=== PATIENT | male | born 1960 | race Caucasian/White ===

== ENCOUNTER → 2019-10-16 08:51 | Outpatient (BNVA) | payer BC, SELFPAY | PROVIDERS: Family Provider Family Medicine; PCP Family Medicine; Visit Provider Podiatrist Foot & Ankle Surgery | DX: M79.671 Pain in right foot (principal) | CPT/HCPCS: 73650 ==

== ENCOUNTER 2019-10-27 04:08 | Emergency (ER) | payer BC, SELFPAY ==
[2019-10-27] VITALS (28 sets, daily range): BP systolic 114–157; BP diastolic 80–92; PULSE 58–60; RESP 17–20; TEMP 526.1–978.9; O2SAT 96–100; BMI 29.5
--- NOTE | 2019-10-27 04:31 | CTR_ITS ---
PROCEDURE INFORMATION: Exam: CT Abdomen And Pelvis Without Contrast Exam date and time: 10/27/2019 4:36 AM Age: 59 years old Clinical indication: Abdominal pain; Flank; Right; Prior surgery; Surgery date: 6+ months; Surgery type: Prostatectomy; Additional info: Flank/abdominal pain TECHNIQUE: Imaging protocol: Computed tomography of the abdomen and pelvis without contrast. Total DLP: 1396.06 mGy-cm Radiation optimization: All CT scans at this facility use at least one of these dose optimization techniques: automated exposure control; mA and/or kV adjustment per patient size (includes targeted exams where dose is matched to clinical indication); or iterative reconstruction. COMPARISON: No relevant prior studies available. FINDINGS: Liver: Normal. No mass. Gallbladder and bile ducts: Normal. No calcified stones. No ductal dilation. Pancreas: Normal. No ductal dilation. Spleen: Normal. No splenomegaly. Adrenals: Normal. No mass. Kidneys and ureters: There is moderate hydronephrosis and hydroureter seen on the right. There is a partially obstructing 3.8 x 6.1 mm distal right ureteral calculus seen at the ureterovesical junction. Stomach and bowel: There are loops of distal small bowel containing desiccated bowel contents suggesting small bowel stasis and enteritis. Appendix: The appendix is visualized and is normal in configuration. Intraperitoneal space: Unremarkable. No free air. No significant fluid collection. Vasculature: Unremarkable. No abdominal aortic aneurysm. Lymph nodes: Unremarkable. No enlarged lymph nodes. Bladder: Unremarkable as visualized. Reproductive: Status post prostatectomy. Bones/joints: Unremarkable. No acute fracture. Soft tissues: There are small bilateral inguinal hernias present containing fat. CT/CT kidney stone 75819 IMPRESSION: 1. Partially obstructing 3.8 x 6.1 mm distal right ureteral calculus at the level of the ureterovesical junction. 2. There are nondilated loops of distal small bowel seen containing particulate bowel contents suggesting small bowel stasis and enteritis. Radiation Dose CTDIVOL = (mGy): DLP = 1396.06 (mGy-cm)
--- NOTE | 2019-10-27 04:31 | ED_ITS ---
Documented by User: Sandra Cameron 10/27/19 04:40 HPI - Abdominal Pain General: Chief Complaint: Abdominal Pain Stated Complaint: ABD PAIN Time Seen by Provider: 10/27/19 04:18 History of Present Illness: HPI narrative: Leonardo is a 59-year-old male comes in complaining of intermittent right flank pain for the past 3 days. He states this pain feels similar to when he has had kidney stones in the past. Patient does not believe he has had any hematuria and denies any dysuria. He has had nausea but no vomiting. He denies any exacerbating or alleviating factors. Associated Symptoms: Reports nausea; Denies chills, coffee ground emesis, constipation, GI cramping, diarrhea, dysuria, fever(s), hematochezia, hematuria, hematemesis, melena, syncope and vomiting Review of Systems General: Reports: other (negative unless marked) Const: Denies: fever, chills, body aches, fatigue, malaise or diaphoresis Eyes: Denies: change in vision or blurry vision ENMT: Denies: throat pain, painful swallowing, hoarseness, ear pain, ear discharge, Change in hearing or nasal discharge Card: Denies: chest pain, palpitations, irregular heart rhythm, syncope, pre- syncope, shortness of breath on exertion or shortness of breath when lying down Resp: Denies: shortness of breath, productive cough, non-productive cough, wheezing, coughing up blood or chest congestion GI: Reports: abdominal pain and nausea; Denies: vomiting, vomiting blood, coffee grounds in vomit, diarrhea, constipation, cramping, blood in stool or black tarry stool : Reports: flank pain; Denies: difficulty urinating, painful urination, urinary frequency, urinary urgency, decreased urine ouput, urinary incontinence or blood in urine Musc: Denies: neck pain, back pain, extremity pain, extremity swelling, joint pain, joint swelling, joint warmth or joint stiffness Skin/Breast: Denies: rash, skin tenderness or yellow skin Neuro: Denies: headache, numbness in extremities, weakness in extremities, changes in sensation, lack of coordination, difficulty walking, dizziness, vertigo or confusion Endo: Denies: excessive thirst, tired all the time, cold intolerance, excessive sweating, flushing or hot flashes Raheem/Lymph: Denies: easy bruising, easy bleeding, petechiae or enlarged lymph nodes All/Imm: Denies: hives, throat swelling, tongue swelling, facial swelling or acute wheezing PFSH ED PFSH: Medical History High cholesterol Surgical History History of ankle surgery History of foot surgery History of knee surgery History of shoulder surgery Family History Other Cancer Diabetes Social History Smoking and tobacco status: never smoked Alcohol intake: current Alcohol intake frequency: 0-2 Drinks per Day Household members: spouse Marital status: Current occupational status: employed Current occupation: Semi retired, [employer] Physical Exam Const: COMMON NORMALS: no apparent distress, oriented x3, no limitations, healthy appearing and well nourished EXAM LIMITATIONS: no altered mental status GENERAL APPEARANCE: cooperative, well kempt and well developed ORIENTATION/CONSCIOUSNESS: Yes awake HENMT: COMMON NORMALS: normocephalic, head/scalp atraumatic, hearing grossly normal bilaterally, external ears normal, EAC's normal, external nose normal and moist oral mucous membranes HEAD & SCALP: normal to inspection, normocephalic and atraumatic FACE & SINUS: normal facial exam and face symmetric NOSE: external nose normal and nares normal EXTERNAL EAR: Yes external ears normal EXTERNAL AUDITORY CANAL: EAC's normal MOUTH: oral and palatal mucosa normal and tongue normal Eye: COMMON NORMALS: PERRL, EOMs intact bilaterally, conjunctivae normal and no scleral icterus GENERAL EYE: normal appearance of both eyes and normal light reflex CONJUNCTIVA: Yes conjunctivae normal SCLERA: sclerae normal CORNEA: Yes corneas normal PUPIL: Yes PERRL DIRECT OPHTHALMOSCOPY: Yes normal light reflex Neck/C-Spine: COMMON NORMALS: full ROM, no lymphadenopathy, supple, no meningeal signs and no JVD GENERAL: Yes normal visual inspection and Yes trachea midline CERVICAL SPINE: Yes cervical ROM normal Chest: COMMONS NORMALS: inspection of chest normal and palpation of chest normal Resp: COMMON NORMALS: normal respiratory effort, no retractions, no use of accessory muscles and clear to auscultation bilaterally EFFORT & INSPECTION: Yes able to speak in complete sentences AUSCULTATION: clear to auscultation bilaterally Cardio: COMMON NORMALS: no JVD, regular rate, regular rhythm, S1 normal heart sound, S2 normal heart sound, no gallops, no clicks, no murmurs and no rub JUGULAR VENOUS DISTENTION: no JVD RATE: regular rate RHYTHM: regular rhythm HEART SOUNDS: S1 normal and S2 normal GI: COMMON NORMALS: soft to palpation, non-tender, no hepatosplenomegaly and no masses INSPECTION: Yes normal to inspection PALPATION: Yes soft and Yes no hepatosplenomegaly : BLADDER/KIDNEY EXAM: Yes CVA tenderness on the right Back/Pelvis: COMMON NORMALS: thoracic and lumbar spine normal to inspection, no thoracic nor lumbar tenderness and thoraco-lumbar ROM normal GENERAL BACK: Yes CVA tenderness Extremity: COMMON NORMALS: normal to inspection, full ROM, normal capillary refill, no joint enlargement, no clubbing, cyanosis or edema and no calf tenderness Neuro: COMMON NORMALS: oriented x3, CN's II-XII intact bilaterally, moves all extremities, no focal motor deficits and no sensory deficits noted MENINGEAL SIGNS: Yes no meningeal signs Psych: COMMON NORMALS: mental status grossly normal, thought process normal, cooperative, affect normal, speech normal and activity/motor behavior normal APPEARANCE: Yes well kempt SPEECH: Yes normal speech THOUGHT PROCESS: normal thought process Skin: COMMON NORMALS: no rashes or lesions noted, skin turgor normal, no jaundice, no petechiae and no mottling GENERAL SKIN EXAM: no rashes or lesions noted and turgor normal Course Vital Signs: Vital signs: Vital Signs Temperature 978.9 F H 10/27/19 04:16 Pulse Rate 60 10/27/19 04:16 Respiratory Rate 20 H 10/27/19 04:16 Blood Pressure 157/92 10/27/19 06:45 Pulse Oximetry 98 10/27/19 05:25 MDM - Abdominal Pain Lab Data: Labs: Lab Results 10/27/19 10/27/19 10/27/19 Range/Units 04:30 04:30 05:32 WBC 7.6 (4.0-10.0) 10^3/ uL RBC 5.09 (4.1-5.3) 10^6/u L Hgb 15.6 (11.7-16.6) g/dL Hct 45.8 (42.0-52.0) % MCV 90.0 (80-94) fL MCH 30.6 (28.0-34.0) pg MCHC 34.1 (30.0-36.0) g/dL RDW 12.0 L (12.1-15.1) % Plt Count 260 (130-400) 10^3/c mm MPV 10.6 H (7.4-10.4) fL Neut % (Auto) 50.5 % Lymph % (Auto) 38.0 % [place] % (Auto) 9.7 % Eos % (Auto) 1.1 % Baso % (Auto) 0.4 % Neut # (Auto) 3.8 (1.8-7.7) 10^3/u L Lymph # (Auto) 2.9 (0.8-4.8) 10^3/u L [place] # (Auto) 0.7 (0.2-0.9) 10^3/u L Eos # (Auto) 0.1 (0.0-0.8) 10^3/u L Baso # (Auto) 0.0 (0.0-0.1) 10^3/u L Nucleated RBC % (a uto) 0 % Nucleated RBCs # 0.0 /100WBC Sodium 140 (136-145) mmol/L Potassium 4.0 (3.5-5.1) mmol/L Chloride 100 (98-107) mmol/L Carbon Dioxide 28 (22-29) mmol/L Anion Gap 16.0 (5-19) BUN 28 H (8-23) mg/dL Creatinine 1.1 (0.7-1.2) mg/dL GFR Calculation 68.1 L (90-130) mL/min Glucose 138 H (65-115) mg/dL Calculated Osmolal ity 289 (285-295) mOsm/k g Calcium 10.2 (8.5-10.5) mg/dL Total Bilirubin 0.5 (0.15-1.2) mg/dL AST 37 (0-40) U/L ALT 35 (0-41) U/L Alkaline Phosphata se 80 (40-130) IU/L Total Protein 7.9 (6.6-8.7) g/dL Albumin 5.0 (3.5-5.2) g/dL Globulin 2.9 (1.3-4.6) g/dL Lipase 30 (13-60) U/L Urine Color Yellow (Yellow) Urine Appearance Clear (CLEAR) Urine pH 5 (5-7) Ur Specific Gravit y 1.020 (1.005-1.030) Urine Protein Neg (Negative) Urine Glucose (UA) Norm (Normal) Urine Ketones Negative (Negative) Urine Blood 3+ H (Negative) Urine Nitrate Negative (Negative) Urine Bilirubin Neg (NEGATIVE) Urine Urobilinogen Norm (Negative) mg/dL Ur Leukocyte Mony ase Negative (Negative) Urine RBC 5-10 H (0-2) /hpf Urine WBC Rare (0-5) /hpf Ur Squamous Epith Cells Rare (0-5) Urine Bacteria 1+ H (NONE) Discharge Plan Discharge Patient Disposition: Home, Self-Care Clinical Impression: Renal colic Urolithiasis Qualifiers: Urinary calculus location: ureter Qualified Code(s): N20.1 - Calculus of ureter Condition: Stable Prescriptions: New Bactrim DS 800-160 mg tablet 1 tab PO BID 14 Days Qty: 28 RF: 0 hydrocodone-acetaminophen 5-325 mg tablet 1 tab PO Q4H PRN (Reason: pain) Qty: 20 RF: 0 No Action meloxicam 15 mg tablet PO RF: 0 atorvastatin 40 mg tablet PO RF: 0 diazepam 10 mg tablet PO RF: 0 aspirin [Adult Aspirin Regimen] 81 mg tablet,delayed release (DR/EC) 81 mg PO DAILY RF: 0 Discharge Orders: Discharge Order (Routine); Ordered 10/27/19 Ordered By: Sourav Blunt Referrals: Billy Lilly MD [Primary Care Provider] - Patient Instructions: Kidney Stones (ED), Renal Colic (ED) Coding Level of Care Code ED Retail Route Supervisor for Chg Fwd Exam Comprehensive Documented by User: Sourav Blunt DO 10/27/19 07:14 HPI - Abdominal Pain General: Chief Complaint: Abdominal Pain Stated Complaint: ABD PAIN Time Seen by Provider: 10/27/19 04:18 PFSH ED PFSH: Medical History High cholesterol Surgical History History of ankle surgery History of foot surgery History of knee surgery History of shoulder surgery Family History Other Cancer Diabetes Social History Smoking and tobacco status: never smoked Alcohol intake: current Alcohol intake frequency: 0-2 Drinks per Day Household members: spouse Marital status: Current occupational status: employed Current occupation: Semi retired, [employer] Course Vital Signs: Vital signs: Vital Signs Temperature 978.9 F H 10/27/19 04:16 Pulse Rate 60 10/27/19 04:16 Respiratory Rate 20 H 10/27/19 04:16 Blood Pressure 157/92 10/27/19 06:45 Pulse Oximetry 98 10/27/19 05:25 MDM - Abdominal Pain Lab Data: Labs: Lab Results 10/27/19 10/27/19 10/27/19 Range/Units 04:30 04:30 05:32 WBC 7.6 (4.0-10.0) 10^3/ uL RBC 5.09 (4.1-5.3) 10^6/u L Hgb 15.6 (11.7-16.6) g/dL Hct 45.8 (42.0-52.0) % MCV 90.0 (80-94) fL MCH 30.6 (28.0-34.0) pg MCHC 34.1 (30.0-36.0) g/dL RDW 12.0 L (12.1-15.1) % Plt Count 260 (130-400) 10^3/c mm MPV 10.6 H (7.4-10.4) fL Neut % (Auto) 50.5 % Lymph % (Auto) 38.0 % [place] % (Auto) 9.7 % Eos % (Auto) 1.1 % Baso % (Auto) 0.4 % Neut # (Auto) 3.8 (1.8-7.7) 10^3/u L Lymph # (Auto) 2.9 (0.8-4.8) 10^3/u L [place] # (Auto) 0.7 (0.2-0.9) 10^3/u L Eos # (Auto) 0.1 (0.0-0.8) 10^3/u L Baso # (Auto) 0.0 (0.0-0.1) 10^3/u L Nucleated RBC % (a uto) 0 % Nucleated RBCs # 0.0 /100WBC Sodium 140 (136-145) mmol/L Potassium 4.0 (3.5-5.1) mmol/L Chloride 100 (98-107) mmol/L Carbon Dioxide 28 (22-29) mmol/L Anion Gap 16.0 (5-19) BUN 28 H (8-23) mg/dL Creatinine 1.1 (0.7-1.2) mg/dL GFR Calculation 68.1 L (90-130) mL/min Glucose 138 H (65-115) mg/dL Calculated Osmolal ity 289 (285-295) mOsm/k g Calcium 10.2 (8.5-10.5) mg/dL Total Bilirubin 0.5 (0.15-1.2) mg/dL AST 37 (0-40) U/L ALT 35 (0-41) U/L Alkaline Phosphata se 80 (40-130) IU/L Total Protein 7.9 (6.6-8.7) g/dL Albumin 5.0 (3.5-5.2) g/dL Globulin 2.9 (1.3-4.6) g/dL Lipase 30 (13-60) U/L Urine Color Yellow (Yellow) Urine Appearance Clear (CLEAR) Urine pH 5 (5-7) Ur Specific Gravit y 1.020 (1.005-1.030) Urine Protein Neg (Negative) Urine Glucose (UA) Norm (Normal) Urine Ketones Negative (Negative) Urine Blood 3+ H (Negative) Urine Nitrate Negative (Negative) Urine Bilirubin Neg (NEGATIVE) Urine Urobilinogen Norm (Negative) mg/dL Ur Leukocyte Mony ase Negative (Negative) Urine RBC 5-10 H (0-2) /hpf Urine WBC Rare (0-5) /hpf Ur Squamous Epith Cells Rare (0-5) Urine Bacteria 1+ H (NONE) Discharge Plan Discharge Patient Disposition: Home, Self-Care Clinical Impression: Renal colic Urolithiasis Qualifiers: Urinary calculus location: ureter Qualified Code(s): N20.1 - Calculus of ureter Condition: Stable Prescriptions: New Bactrim DS 800-160 mg tablet 1 tab PO BID 14 Days Qty: 28 RF: 0 hydrocodone-acetaminophen 5-325 mg tablet 1 tab PO Q4H PRN (Reason: pain) Qty: 20 RF: 0 No Action meloxicam 15 mg tablet PO RF: 0 atorvastatin 40 mg tablet PO RF: 0 diazepam 10 mg tablet PO RF: 0 aspirin [Adult Aspirin Regimen] 81 mg tablet,delayed release (DR/EC) 81 mg PO DAILY RF: 0 Discharge Orders: Discharge Order (Routine); Ordered 10/27/19 Ordered By: Sourav Blunt Referrals: Billy Lilly MD [Primary Care Provider] - Patient Instructions: Kidney Stones (ED), Renal Colic (ED) Coding Level of Care Code ED Retail Route Supervisor for Chg Fwd Exam Comprehensive
[2019-10-27] MEDS: morphine 4 mg/mL SDV 1 mL IVP ×2 (04:36→07:35)
[2019-10-27] MEDS: ondansetron 2 mg/ML SDV 2 mL 4 MG IVP ×2 (04:36→05:22)
[2019-10-27] MEDS: sodium chloride 0.9% 1,000 ML 100 ML IV (04:37)
[2019-10-27 05:01] LABS: Basophils % 0.4 %; Eosinophils # 0.1 10^3/uL (0.0-0.8); Eosinophils % 1.1 %; Hematocrit 45.8 % (42.0-52.0); Hemoglobin 15.6 g/dL (11.7-16.6); Lymphocytes # 2.9 10^3/uL (0.8-4.8); Mean Corpuscular HGB Conc 34.1 g/dL (30.0-36.0); Mean Corpuscular Hemoglobin 30.6 pg (28.0-34.0); Mean Platelet Volume 10.6 fL (7.4-10.4); Monocytes # 0.7 10^3/uL (0.2-0.9); Monocytes % 9.7 %; Neutrophils # 3.8 10^3/uL (1.8-7.7); Neutrophils % 50.5 %; Nucleated Red Blood Cells % 0 %; Platelet Count 260 10^3/cmm (130-400); Red Blood Count 5.09 10^6/uL (4.1-5.3); White Blood Count 7.6 10^3/uL (4.0-10.0)
[2019-10-27 05:05] LABS: Alanine Aminotransferase 35 U/L (0-41); Alkaline Phosphatase 80 IU/L (40-130); Aspartate Amino Transferase 37 U/L (0-40); Blood Urea Nitrogen 28 mg/dL (8-23); Calcium 10.2 mg/dL (8.5-10.5); Carbon Dioxide 28 mmol/L (22-29); Chloride 100 mmol/L (98-107); Globulin 2.9 g/dL (1.3-4.6); Glomerular Filtration Rate 68.1 mL/min (90-130); Glucose 138 mg/dL (65-115); Lipase 30 U/L (13-60); Osmolality Calculated 289 mOsm/kg (285-295); Sodium 140 mmol/L (136-145); Total Bilirubin 0.5 mg/dL (0.15-1.2); Total Protein 7.9 g/dL (6.6-8.7)
[2019-10-27] MEDS: HYDROmorphone 1 mg/mL INJ 1 mL IVP (05:23)
[2019-10-27] MEDS: sodium chloride 0.9% 1,000 ML 999 ML IV (05:24)
[2019-10-27] MEDS: ketorolac 30 mg/mL INJ 10 MG IVP (06:06)
[2019-10-27 06:16] LABS: Bacteria Urine 1+; Bilirubin Urine Neg (NEGATIVE); Blood Urine 3+ (Negative); Glucose Urine UA Norm (Normal); Ketones Urine Negative (Negative); Leukocyte Esterase Urine Negative (Negative); Nitrate Urine Negative (Negative); Protein Urine Neg (Negative); Squamous Epithelial Cell Urine RARE (0-5); Urine Appearance Clear (CLEAR); Urine Color Yellow (Yellow); Urobilinogen Urine Norm (Negative); WBC Urine RARE /hpf (0-5); pH Urine 5 (5-7)
== END 2019-10-27 08:24 | disposition home or self-care (01) ==
PROVIDERS: Emergency Medicine; Emergency Provider Family Medicine; Family Provider Family Medicine; PCP Family Medicine
DX: N20.1 Calculus of ureter (principal); E78.00 Pure hypercholesterolemia, unspecified; Z79.82 Long term (current) use of aspirin; Z87.442 Personal history of urinary calculi; Z83.3 Family history of diabetes mellitus
CPT/HCPCS: 12345; 74176; 80053; 81001; 83690; 85025; 96360; 96361; 96374; 96375; 96376; 99283; A9270; J0131; J1170; J1885; J2270; J2405; J7030

== ENCOUNTER → 2020-05-28 10:51 | Outpatient (BNVA) | payer BC, SELFPAY | PROVIDERS: Family Provider Family Medicine; PCP Family Medicine; Visit Provider Surgery | DX: Z11.59 Encounter for screening for other viral diseases (principal); R10.13 Epigastric pain | CPT/HCPCS: 87635 ==

== ENCOUNTER 2020-06-02 09:07 | Day surgery (SDC) | payer BC, SELFPAY ==
[2020-05-29 14:13] VITALS: BMI 29.5
--- NOTE | 2020-06-02 06:58 | W.PM.OPSUD ---
Surgery/Procedure H&P Update DATE OF PROCEDURE: June 02, 2020 DATE H&P PERFORMED: 05/18/20 H&P UPDATE INFORMATION: I have reviewed H&P completed within last 30 days, I have examined patient prior to procedure and No changes to prior documentation PLANNED PROCEDURE: Operation Date: 06/02/20 10:15 Proposed Procedures p EGD 96707 R10.13(Not Applicable) - Franklyn Baugh MD
[2020-06-02 09:27] VITALS: RESP 18; TEMP 36.7
[2020-06-02 09:31] VITALS: BP 131/92; PULSE 72; O2SAT 100
--- NOTE | 2020-06-02 09:41 | ANES.PREANE2 ---
Pre-Anesthetic Assessment Pre-Anesthetic Assessment: Height/Weight: Height 1.75 m Weight 90.718 kg Temp Pulse Resp BP Pulse Ox 98.1 F 72 18 131/92 100 06/02/20 09:27 06/02/20 09:31 06/02/20 09:27 06/02/20 09:31 06/02/20 09:31 Preop Diagnosis: Epigastric pain Proposed Procedure: Operation Date: 06/02/20 10:15 Proposed Procedures p EGD 20663 R10.13(Not Applicable) - Franklyn Baugh MD Familial anesthetic complications: None Was Beta Merrick taken within 24 hours: N/A Last intake: Intake Last Liquid Date 06/01/20 Last Liquid Time 19:30 Last Solid Date 06/01/20 Last Solid Time :30 Social: Social History: No alcohol and No tobacco Exam: Pre-Anes Outpt Exam: alert, oriented x 3, clear to auscultation bilaterally and regular rate & rhythm Airway: Cervical ROM: WNL MP: 2 Dentition: Full CV/HEM: CV/HEM: HTN GI: GI: GERD Comments: w/ severe chest pains during gerd episodes- cardiac etiology ruled out by PCP Metabolic: Metabolic: Hyperlipidemia Anesthetic Plan: ASA status: 2 Anesthesia: MAC Risk of > 500 ml blood loss (7ml/kg in children): No PFSH Anesthesia PFSH: Medical History (Updated 06/01/20 @ 13:36 by Franklyn Baugh MD) Dyslipidemia History of rectal fissure Hypertension Surgical History H/O circumcision H/O colonoscopy 2018 H/O shoulder replacement H/O vasectomy History of ankle surgery History of foot surgery History of knee surgery History of prostate surgery History of shoulder surgery Family History Other Cancer Diabetes Denies family history of Anesthesia complication Bleeding disorder Social History Smoking and tobacco status: never smoked Alcohol intake: current Alcohol intake frequency: 0-2 Drinks per Day Household members: spouse Marital status: Current occupational status: employed Current occupation: Semi retired, [employer] History of recent travel: No Data Anesthesia Cardiac Studies: No Data to Display
[2020-06-02] MEDS: sodium chloride 0.9% 1,000 ML 30 ML IV (10:31)
[2020-06-02 11:35] VITALS: BP 124/82; PULSE 78; RESP 18; TEMP 36.4; O2SAT 99
--- NOTE | 2020-06-02 11:39 | ANE.PACU2 ---
Inpatient post-anesthesia follow up: Airway intact: Yes Vital signs: Temperature 98.1 F Pulse Rate 72 Respiratory Rate 18 Blood Pressure 131/92 Pulse Oximetry 100 Oxygen Delivery Me thod Room Air Oxygen Flow Rate Fraction of Inspir ed Oxygen Hydration adequate: Yes Nausea and vomiting: No Pain level: 1 Mental status: Baseline
[2020-06-02 11:48] VITALS: BP 141/87; PULSE 59; RESP 18; O2SAT 100
== END 2020-06-02 12:19 | disposition home or self-care (01) ==
PROVIDERS: PCP Family Medicine; Visit Provider Surgery
PROC: 0DJ08ZZ Inspection of Upper Intestinal Tract, Via Natural or Artificial Opening Endoscopic (ICD-10-PCS; CPT 43235; principal; 2020-06-02 10:15)
DX: R10.13 Epigastric pain (principal); K29.50 Unspecified chronic gastritis without bleeding; K21.00 Gastro-esophageal reflux disease with esophagitis, without bleeding; I10 Essential (primary) hypertension; E78.5 Hyperlipidemia, unspecified; Z80.9 Family history of malignant neoplasm, unspecified; Z79.82 Long term (current) use of aspirin
CPT/HCPCS: 12345; 43239; 88305; J7030

== ENCOUNTER 2020-06-04 09:55 | Outpatient (CLI) | payer BC, SELFPAY ==
--- NOTE | 2020-06-04 10:00 | NM_ITS ---
WS: [id number] NUCLEAR MEDICINE HIDA SCAN WITH GALLBLADDER EJECTION FRACTION HISTORY: R10.13 - Epigastric pain COMPARISON: None available. TECHNIQUE: The patient was intravenously injected with 7.6 mCi of TC99m Mebrofenin. Immediate imaging over the right upper quadrant was followed by 5 minute image and additional images for a total of 60 minutes. Normal uptake of radiotracer throughout the liver. Activity identified in the gallbladder at 30 minutes and well distended by 60 minutes. Activity in the proximal small bowel was seen by 15 minutes. Good washout of the radiotracer from the liver by 60 minutes. The patient then drank 8 ounces of Ensure Plus. Ejection fraction at 60 minutes was 91%. Normal GB ej ection fraction is 35-75%. Post fatty meal symptoms: None. NM/NM hepatobiliary w phar* [id number] IMPRESSION: 1. Normal HIDA scan. 2. Normal gallbladder ejection fraction.
== END 2020-06-04 09:56 | disposition home or self-care (01) ==
LOC: RAD 09:59
PROVIDERS: PCP Family Medicine; Visit Provider Surgery
DX: R10.13 Epigastric pain (principal)
CPT/HCPCS: 78227; A9537

== ENCOUNTER 2021-04-07 08:27 | Outpatient (CLI) | payer BC, SELFPAY ==
[2021-04-07 09:40] VITALS: BMI 28.9
--- NOTE | 2021-04-07 09:41 | ECG_ITS ---
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 Interpretive Statements NAME OF STUDY: EXERCISE SESTAMIBI STRESS TEST INDICATION: Chest Pain, PROCEDURE: The baseline electrocardiogram showed bradycardia with a rate of [address]-T changes.. At the baseline, the patient's blood pressure was 146/80 mm Hg with a heart rate of 55. The patient exercised for 11 minutes and 20 seconds on a standard Usman protocol. Patient attained a maximum heart rate of 172 beats per minute(108% of the maximum predicted heart rate) with a blood pressure at the peak exercise of 175/90 mm Hg. The EKG at the peak exercise revealed no significant changes. Patient did not have any chest pain or any significant arrhythmis with the exercise Sestamibi was injected 1 minute prior to the peak exercise During the recovery phase, there were no new changes. Blood pressure at the end of the recovery phase was 156/96 mm Hg with a heart rate of 95 per minute. CONCLUSION: 1. No significant EKG changes with the treadmill exercise 2. No exercise-induced chest pain or cardiac arrhythmia 3. Good exercise tolerance, attained a maximum of 13.5 METs 4. Sestamibi/Sestamibi perfusion results pending; see separate report. Electronically Signed On 04-08-2021 0:57:46 CDT by Octavio Lin M.D. [email or web address]
--- NOTE | 2021-04-07 09:41 | NMCV_ITS ---
NM senia perf SPECT r/s* [id number] Leonardo Krause Age: 60 Gender: M : 1960 Exam Date: 04/07/2021 09:42 Ordering Phys: Billy Lilly MD Technologist: SEB Turner Exam Location: [facility] Indications: CHEST PAIN STRESS TEST Please see separate stress test report in [facility] for full findings IMAGE PROTOCOL Rest/Stress 1 Exercise Day Radiopharmaceutical Dose (mCi) Administration Site Administered by Rest: Tc-99m 10.9 IV SEB Padilla Sestamibi Stress:Tc-99m 32.4 IV SEB Padilla Sestamibi Rest: 07-Apr-2021 60 Discovery 630 Stress: 07-Apr-2021 30 Discovery 630 Radiopharmaceutical was injected at 100% maximum heart rate. Images obtained in supine and prone position. SPECT RESULTS Technical Quality: Excellent Raw Data Analysis: Normal Image Corrections: No attenuation or motion correction applied Summed Stress Score: 3 Summed Rest Score: 3 Summed Difference Score: 1 PERFUSION FINDINGS Small to moderate area of moderate decreased tracer uptake was noted in the basal and mid inferoseptal regions. No significant reversibility was noted in these regions FUNCTIONAL RESULTS (calculated via Gated SPECT) Stress Image LV EF (%): 61 Stress EDV (mL):113 TID: 0.84 Stress ESV (mL):44 FUNCTIONAL FINDINGS: Segmental wall motion analysis revealing no gross wall motion normalities IMPRESSIONS 1. Myocardial perfusion imaging revealing small to moderate area of persistent decreased tracer uptake in the basal and mid inferoseptal regions, suggestive of myocardial scarring versus attrition artifact. 2. Normal LV ejection fraction of 61%. 3. LV wall motion analysis revealing no gross wall motion normalities. 4. Near normal LV volume. No significant coronary ischemia, based on the above findings Dr Octavio Lin MD FACC (Electronically Signed) Final Date: 07 April 2021 18:53 S
[2021-04-07 10:40] VITALS: BP 156/96; PULSE 96
== END 2021-04-07 08:28 | disposition home or self-care (01) ==
LOC: CDL 08:31
PROVIDERS: PCP Family Medicine; Visit Provider Family Medicine
DX: R07.9 Chest pain, unspecified (principal)
CPT/HCPCS: 78452; 93017; A9500

== ENCOUNTER → 2022-04-05 09:54 | Outpatient (BNVA) | payer BC, SELFPAY | PROVIDERS: PCP Family Medicine; Visit Provider Family Medicine | DX: K29.70 Gastritis, unspecified, without bleeding (principal); I10 Essential (primary) hypertension; E78.5 Hyperlipidemia, unspecified | CPT/HCPCS: 80053; 80061 ==

== ENCOUNTER → 2023-03-21 09:03 | Outpatient (BNVA) | payer BC, SELFPAY | PROVIDERS: PCP Family Medicine; Visit Provider Family Medicine | DX: K29.70 Gastritis, unspecified, without bleeding (principal); I10 Essential (primary) hypertension; E78.5 Hyperlipidemia, unspecified; G57.80 Other specified mononeuropathies of unspecified lower limb; G57.81 Other specified mononeuropathies of right lower limb | CPT/HCPCS: 80053; 80061; 85025 ==

== ENCOUNTER → 2023-12-12 08:47 | Outpatient (BNVA) | payer MEDICARE, SELFPAY | PROVIDERS: PCP Family Medicine; Visit Provider Student in an Organized Health Care Education/Training Program | DX: S69.82XA Other specified injuries of left wrist, hand and finger(s), initial encounter; X58.XXXA Exposure to other specified factors, initial encounter | CPT/HCPCS: 73110 ==

== ENCOUNTER → 2024-02-21 08:53 | Outpatient (BNVA) | payer MEDICARE, SELFPAY | PROVIDERS: PCP Family Medicine; Visit Provider Family Medicine | DX: I10 Essential (primary) hypertension (principal); E78.5 Hyperlipidemia, unspecified; Z85.46 Personal history of malignant neoplasm of prostate | CPT/HCPCS: 80053; 80061; 84153 ==

== ENCOUNTER → 2024-10-17 10:35 | Outpatient (BNVA) | payer MEDICARE, SELFPAY | PROVIDERS: PCP Family Medicine; Visit Provider Nurse Practitioner Family | DX: L81.4 Other melanin hyperpigmentation (principal); L82.1 Other seborrheic keratosis; D22.62 Melanocytic nevi of left upper limb, including shoulder; L57.0 Actinic keratosis | CPT/HCPCS: 17000; 99213 ==

== ENCOUNTER → 2025-02-20 07:43 | Outpatient (BNVA) | payer MEDICARE, SELFPAY | PROVIDERS: PCP Family Medicine; Visit Provider Family Medicine | DX: I10 Essential (primary) hypertension (principal); K29.70 Gastritis, unspecified, without bleeding; E78.5 Hyperlipidemia, unspecified | CPT/HCPCS: 80053; 80061 ==

== ENCOUNTER → 2025-03-12 10:43 | Outpatient (BNVA) | payer MEDICARE, SELFPAY | PROVIDERS: PCP Family Medicine; Visit Provider Surgery | DX: K21.9 Gastro-esophageal reflux disease without esophagitis (principal) | CPT/HCPCS: 99203 ==

== ENCOUNTER 2025-03-27 11:42 | Day surgery (SDC) | payer MEDICARE, SELFPAY ==
[2025-03-27 12:12] VITALS: BP 141/95; PULSE 60; RESP 18; TEMP 36.1; O2SAT 97; BMI 28.3
--- NOTE | 2025-03-27 12:30 | ANES.PREANE2 ---
Pre-Anesthetic Assessment Height/Weight: Height 1.75 m Weight 87.09 kg Temp Pulse Resp BP Pulse Ox O2 Del Method 97.0 F L 60 18 141/95 97 Room Air 03/27/25 12:12 03/27/25 12:12 03/27/25 12:12 03/27/25 12:12 03/27/25 12:12 03/27/25 12:12 Preop Diagnosis: abd pain Operation Date: 03/27/25 13:40 Proposed Procedures p EGD EGD with Biopsy 34557 K21.9(Not Applicable) - Zenon Richards MD Was Beta Merrick taken within 24 hours: Yes Was Clonidine taken within 24 hours: N/A Last intake: Intake Last Liquid Date 03/26/25 Last Liquid Time 17:30 Last Solid Date 03/26/25 Last Solid Time 17:30 Last Intake: 23:30 Social No alcohol and No tobacco Exam alert and oriented x 3 Airway Submandibular: within normal limits Cervical ROM: within normal limits Mallampati: Class II Dentition: full History/ROS No significant history except as noted Pulmonary None reported CV/HEM None reported None reported Hepatic None reported GI Gastroesophageal Reflux Disease Metabolic None reported Musc/skel None reported Neuropsych None reported Anesthetic Plan ASA status: 2 Anesthesia: MAC Risk of > 500 ml blood loss (7ml/kg in children): No Medications/Allergies Home Medications ?Medication ?Instructions ?Recorded ?Confirmed ?Last Taken ?Type aspirin 81 mg tablet,delayed 81 mg PO DAILY 10/16/19 03/24/25 03/24/25 History release (Adult Aspirin Regimen) cholecalciferol (vitamin D3) 25 25 mcg PO DAILY 05/18/20 03/24/25 03/24/25 History mcg (1,000 unit) capsule glucosamine-chondroitin 250 mg-200 2 tab PO DAILY 05/18/20 03/24/25 03/24/25 History mg tablet (Osteo Bi-Flex) multivitamin 1 tab PO DAILY 05/18/20 03/24/25 03/24/25 History vitamin E 200 unit capsule 400 unit PO DAILY 05/18/20 03/24/25 03/24/25 History metoclopramide HCl 10 mg tablet 10 mg PO TID PRN nausea and 08/22/24 03/24/25 Unknown Rx (Reglan) vomiting #60 tabs oxycodone-acetaminophen 7.5 mg-325 1 tab PO TID PRN pain 2 weeks #30 08/22/24 03/24/25 Unknown Rx mg tablet tabs diazepam 10 mg tablet 10 mg PO BID PRN Anxiety #60 tabs 03/10/25 03/24/25 03/22/25 Rx atorvastatin 40 mg tablet 40 mg PO DAILY 03/24/25 03/24/25 03/24/25 History lisinopril 20 mg tablet 20 mg PO DAILY 03/24/25 03/24/25 03/24/25 History pantoprazole 40 mg tablet,delayed 40 mg PO DAILY 03/24/25 03/27/25 03/27/25 History release 40 mg prednisone 20 mg tablet 20 mg PO DAILY PRN Outbreak 03/24/25 03/24/25 Unknown History Allergies Allergy/AdvReac Type Severity Reaction Status Date / Time propoxyphene (From AdvReac ADR-Vomitin Verified 03/12/25 10:44 Darvocet-N 100) g Current Medications Generic Name Dose Route Start Last Admin Trade Name Freq PRN Reason Stop Dose Admin Sodium Chloride 1,000 mls @ 30 mls/hr 03/27/25 07:00 03/27/25 12:23 Sodium Chloride 0.9% IV 03/28/25 06:59 30 mls/hr .Q24H CAROLYN Administration PFSH Anesthesia Medical History Gastritis Lower esophageal ring (Schatzki) Dyslipidemia History of rectal fissure Hypertension Surgical History H/O esophagogastroduodenoscopy (06/02/20) H/O circumcision H/O vasectomy H/O shoulder replacement H/O colonoscopy 2018 History of prostate surgery History of foot surgery History of shoulder surgery History of knee surgery History of ankle surgery Family History Other Cancer Diabetes Denies family history of Anesthesia complication Bleeding disorder Social History Smoking and tobacco/nicotine status: never used tobacco/nicotine Alcohol intake: current Alcohol intake frequency: 0-2 Drinks per Day Substance/Drug Use: never Household members: spouse Marital status: Current occupational status: employed Current occupation: Semi retired, [employer] Anesthesia Cardiac Studies: Sestamibi Stress Test (Cardiology) 04/07/21
--- NOTE | 2025-03-27 12:37 | P.HPUD_ITS ---
Surgery/Procedure H&P Update DATE OF PROCEDURE: March 27, 2025 DATE H&P PERFORMED: 03/12/25 H&P UPDATE INFORMATION: I have reviewed H&P completed within last 30 days, I have examined patient prior to procedure, No changes to prior documentation, H&P is in [facility] EMR on date indicated and Risks and benefits of the procedure reviewed PREOP DIAGNOSIS: abd pain PLANNED PROCEDURE: Operation Date: 03/27/25 13:40 Proposed Procedures p EGD EGD with Biopsy 96090 K21.9(Not Applicable) - Zenon Richards MD
--- NOTE | 2025-03-27 13:07 | ANE.PACU2 ---
Inpatient post-anesthesia follow up: Airway intact: Yes Vital signs: Temperature 97.0 F Pulse Rate 60 Respiratory Rate 18 Blood Pressure 141/95 Pulse Oximetry 97 Oxygen Delivery Me thod Room Air Oxygen Flow Rate Fraction of Inspir ed Oxygen Hydration adequate: Yes Nausea and vomiting: No Pain level: Other Pain level: 0 Mental status: Baseline
[2025-03-27 13:11] VITALS: BP 127/77; PULSE 86; RESP 18; TEMP 36.3; O2SAT 99
--- NOTE | 2025-03-27 13:15 | ANE.PACU2 ---
Inpatient post-anesthesia follow up: Airway intact: Yes Vital signs: Temperature 97.4 F Pulse Rate 86 Respiratory Rate 18 Blood Pressure 127/77 Pulse Oximetry 99 Oxygen Delivery Me thod Room Air Oxygen Flow Rate Fraction of Inspir ed Oxygen Hydration adequate: Yes Nausea and vomiting: No Pain level: 1 Mental status: Baseline
[2025-03-27 13:24] VITALS: BP 118/68; PULSE 65; RESP 18; O2SAT 95
== END 2025-03-27 13:25 | disposition home or self-care (01) ==
PROVIDERS: PCP Family Medicine; Visit Provider Surgery
PROC: 0DJ08ZZ Inspection of Upper Intestinal Tract, Via Natural or Artificial Opening Endoscopic (ICD-10-PCS; principal; 2025-03-27 13:40)
DX: R12 Heartburn (principal); K44.9 Diaphragmatic hernia without obstruction or gangrene; K21.9 Gastro-esophageal reflux disease without esophagitis; Z79.82 Long term (current) use of aspirin; K29.70 Gastritis, unspecified, without bleeding; I10 Essential (primary) hypertension; E78.5 Hyperlipidemia, unspecified
CPT/HCPCS: 43239; 88305; J2704; J7030

== ENCOUNTER → 2025-04-15 09:14 | Outpatient (BNVA) | payer MEDICARE, SELFPAY | PROVIDERS: PCP Family Medicine; Visit Provider Surgery | DX: Z09 Encounter for follow-up examination after completed treatment for conditions other than malignant neoplasm (principal) | CPT/HCPCS: 99213 ==